=== PATIENT | male | born 2000 | race Caucasian/White ===

== ENCOUNTER → 2021-03-29 10:13 | Outpatient (BNVA) | payer OTHER, SELFPAY | PROVIDERS: Family Provider Family Medicine; PCP Pediatrics Adolescent Medicine; Visit Provider Nurse Practitioner Family | DX: Z20.822 Contact with and (suspected) exposure to COVID-19 (principal); J06.9 Acute upper respiratory infection, unspecified; Z71.89 Other specified counseling | CPT/HCPCS: 87635 ==